=== PATIENT | male | born 1945 | race Caucasian/White ===

== ENCOUNTER 2016-03-12 15:39 | Emergency (ER) | payer MEDICAID, OTHER ==
[~2016-03-12] VITALS: Ht 170.2 cm; Wt 72.6 kg
[2016-03-12 16:37] VITALS: BP 109/67
== END 2016-03-12 17:22 | disposition home or self-care (01) ==
LOC: ER 15:45
DX: M72.2 Plantar fascial fibromatosis (principal)
CPT/HCPCS: 73630

== ENCOUNTER 2016-04-09 17:47 | Emergency (ER) | payer MEDICAID, OTHER ==
[~2016-04-09] VITALS: Ht 172.7 cm; Wt 73.5 kg
[2016-04-09 18:33] LABS: Basophils # (auto) 0.1 uL; Eosinophils # (auto) 0.3 uL; Eosinophils % (auto) 3.1 % (0.0-7.0); Hematocrit 46.1 % (41.0-53.0); Hemoglobin 15.5 g/dL (13.5-17.5); Lymphocytes # (auto) 2.3 uL; Lymphocytes % (auto) 22.6 % (10.0-50.0); Mean Corpuscular Hemoglobin 33.3 pg (28.0-32.0); Mean Corpuscular Hgb Conc. 33.7 g/dL (32.0-36.0); Monocytes # (auto) 0.7 uL; Monocytes % (auto) 7.1 % (0.0-12.0); Neutrophils # (auto) 6.8 uL; Neutrophils % (auto) 66.2 % (37.0-80.0); Platelet Count (auto) 202 10^3/uL (140-450); Red Cell Distribution Width 13.6 % (11.6-16.0); White Blood Cell 10.2 10^3/uL (4.4-10.8)
[2016-04-09 19:08] LABS: Albumin 3.9 g/dL (3.4-5.0); Anion Gap 8 (5-15); Aspartate Aminotransferase 15 U/L (15-37); BUN/Creatinine Ratio 16.3; Blood Urea Nitrogen 13 mg/dL (7-18); Calcium 8.5 mg/dL (8.5-10.1); Carbon Dioxide 27 mmol/L (21-32); Chloride 106 mmol/L (98-107); GFR African American 123 mL/min; GFR Non-African American 102 mL/min; Glucose 88 mg/dL (74-106); Magnesium 1.9 mg/dL (1.6-2.6); Potassium 3.7 mmol/L (3.5-5.1); Sodium 141 mmol/L (136-145)
[2016-04-09 19:14] LABS: Alkaline Phosphatase 64 U/L (45-117); Bilirubin, Total 0.5 mg/dL (0.2-1.0); Total Protein 7.3 g/dL (6.4-8.2)
[2016-04-09] MEDS ORDERED: KETOROLAC TROMETH 60MG/2ML VIAL IM ONE (22:15)
[2016-04-09 23:57] VITALS: BP 116/71
== END 2016-04-09 23:58 | disposition home or self-care (01) ==
LOC: ER 17:55
DX: M54.32 Sciatica, left side (principal)
CPT/HCPCS: 36415; 72100; 80053; 83735; 84484; 85025; 93005; 96372; 99285; J1885